=== PATIENT | female | born 1990 | race Two or more races ===

== ENCOUNTER 2021-03-08 17:14 | Emergency (ER) | payer SELFPAY ==
[~2021-03-08] VITALS: Ht 165.1 cm; Wt 60.9 kg
[2021-03-08 17:46] VITALS: BP 136/99
--- NOTE | 2021-03-08 18:56 | PHYS DOC ---
Past History Past Surgical History: No Surgical History General Adult EDM: Chief Complaint: ABDOMINAL PAIN HPI: HPI: Patient is a 31-year-old female who presents to the ER today for epigastric pain for 3 days. She describes the pain as constant and burning, she rates it 8 out of 10, no treatment prior to arrival. She is also reporting nausea and vomiting. She denies diarrhea, dysuria, urinary frequency/urgency, fevers. She was sent here from urgent care for rule out cholecystitis. Review of Systems: Review of Systems: 14 body systems of the review of systems have been reviewed. See HPI for pertinent positive and negative responses, otherwise all other systems are negative, nonpertinent or noncontributory Allergies: Allergies: Allergies Coded Allergies Type Severity Reaction Last Updated Verified No Known Drug Allergies 03/08/21 No Physical Exam: PE: Constitutional: Well developed, well nourished, no acute distress, non-toxic appearance. [] HENT: Normocephalic, atraumatic Eyes: PERRL, conjunctiva normal, no discharge. [] Neck: Normal range of motion, no tenderness, supple, no stridor. [] Cardiovascular:Heart rate regular rhythm, no murmur [] Lungs & Thorax: Bilateral breath sounds clear to auscultation [] Abdomen: Bowel sounds normal, soft, no masses, no pulsatile masses, positive Tam sign tenderness with palpation to right upper quadrant and epigastric region of abdomen Skin: Warm, dry, no erythema, no rash. [] Back: No tenderness, no CVA tenderness. [] Extremities: No tenderness, no cyanosis, no clubbing, ROM intact, no edema. [] Neurologic: Alert and oriented X 3, normal motor function, normal sensory function, no focal deficits noted. [] Psychologic: Affect normal, judgement normal, mood normal. [] Current Patient Data: Labs: Laboratory Tests Test 03/08/21 18:42 POC Urine HCG, Qualitative hcg negative (Negative) Vital Signs: Vital Signs Date Time Temp Pulse Resp B/P (MAP) Pulse Ox O2 Delivery O2 Flow Rate FiO2 03/08/21 17:46 99.2 101 20 136/99 99 Room Air EKG: EKG: [] Radiology/Procedures: Radiology/Procedures: PROCEDURE: CT ABD PELV W/ IV CONTRST ONLY Exam: CT of abdomen and pelvis with contrast INDICATION: Right upper quadrant pain TECHNIQUE: Sequential axial images through the abdomen and pelvis obtained following the administration of 75 mL of Isovue-370 IV contrast. Sagittal and coronal reformatted images were reconstructed from the axial data and reviewed. Exposure: One or more of the following in the visualized dose reduction techniques were utilized for this examination: 1. Automated exposure control 2. Adjustment of the MA and/or KV according to patient size 3. Use of iterative of reconstructive technique Comparisons: None FINDINGS: Heart size is normal. No pericardial effusion. Visualized lung bases. No pleural effusion. Liver, spleen, pancreas, gallbladder and adrenals are unremarkable. No perinephric inflammation or hydronephrosis. No renal or ureteral calculi are identified. Bladder is partially distended and not well evaluated. Uterus is nonenlarged. There is a cystic lesion at the left adnexa which measures 4.3 cm in diameter. Large and small bowel are unremarkable. Appendix is normal. No free intra- abdominal air or fluid. No obstruction. Abdominal aorta has a normal course and caliber. Abdominal vasculature is patent. No enlarged intra-abdominal lymph nodes are identified. No suspicious osseous lesions or acute fractures. IMPRESSION: Cystic lesion at the left adnexa measuring 4.3 cm. This is favored represent cyst in the left ovary however incompletely characterized on CT. Electronically signed by: iFliberto Patel MD (03/08/2021 8:24 PM) [facility] DICTATED AND SIGNED BY: FILIBERTO PATEL MD DATE: 03/08/212014 CC: DAMARIS MATHIAS APRN; PCP,NO ~MTH0 0 Heart Score: C/O Chest Pain: No Risk Factors: Risk Factors: DM, Current or recent (<one month) smoker, HTN, HLP, family history of CAD, obesity. Risk Scores: Score 0 - 3: 2.5% MACE over next 6 weeks - Discharge Home Score 4 - 6: 20.3% MACE over next 6 weeks - Admit for Clinical Observation Score 7 - 10: 72.7% MACE over next 6 weeks - Early Invasive Strategies Course & Med Decision Making: Course & Med Decision Making Pertinent Labs and Imaging studies reviewed. (See chart for details) Patient is a 25-year-old female being seen for right upper quadrant and epigastric pain. Work-up included blood work, UA, CT scan of abdomen. Patient was treated in the ER with nausea medication, fluids, pain medication. Patient's potassium was 3.4 and was treated in the ER. Her blood work was mostly unremarkable. CT scan of abdomen showed a ovarian cyst. Patient notified of this and told to follow-up with [facility]. Patient was also treated with a GI cocktail. It is likely that patient is experiencing GERD or gastritis. I discussed with patient all findings and diagnostic testing as well as the need to follow-up with PCP for further evaluation and treatment or return to the ER if any new or worsening symptoms. Strict return precautions were also discussed at length. Patient voiced understanding and agreement with the plan. Patient is hemodynamically stable at the time of disposition. Dragon Disclaimer: [employer] Disclaimer: This electronic medical record was generated, in whole or in part, using a voice recognition dictation system. Departure Departure: Impression: Primary Impression: GERD (gastroesophageal reflux disease) Qualified Codes: K21.9 - Gastro-esophageal reflux disease without esophagit is Disposition: HOME / SELF CARE / HOMELESS Condition: GOOD Referrals: PCP,NO (PCP) Patient Instructions: Diet for Gastroesophageal Reflux Disease, Adult, Gastroesophageal Reflux Disease, Adult Additional Instructions: You were seen in the ER today for upper abdominal pain. You had blood work performed which was unremarkable other than a low potassium level which was treated in the ER. Your CT scan of your abdomen just showed a cyst on your left ovary. You should follow-up with your SCIENTIFIC LINGUIST regarding this. If you develop severe vaginal bleeding or severe pelvic pain this is concerning and you should return to the ER. As a stated previously your potassium level is low please make sure that you are eating potassium rich foods like green leafy vegetables. It is likely that your symptoms are caused by GERD. Please see the handout about foods that you can eat to help prevent GERD. You can take Pepcid OTC for acid reflux at home as directed. If you continue to be constipated you can take MiraLAX [id number] as directed. Please follow-up with your primary care provider tomorrow regarding your ER visit. If you develop worsening of your henry n, uncontrollable nausea or vomiting, fevers, blood in your stools or in your vomit, chest pain, shortness of breath please return to the ER immediately. EMERGENCY DEPARTMENT GENERAL DISCHARGE INSTRUCTIONS Thank you for coming to [facility] (ED) today and trusting us with you care. We trust that you had a positivie experience in our Emergency Department. If you wish to speak to the department management, you may call the director at [phone]. YOUR FOLLOW UP INSTRUCTIONS ARE FOLLOWS: 1. Do you have a private Doctor? If you do not have a private doctor, please ask for a resource list of physicians or clinics that may be able to assist you with follow up care. 2. The Emergency Physician has interpreted your x-rays. The X-Ray specialist will also review them. If there is a change in the findings, you will be notified in 48 hours when at all possible. 3. A lab test or culture has been done, your results will be reviewed and you will be notified if you need a change in treatment. ADDITIONAL INSTRUCTIONS AND INFORMATION: 1. Your care today has been supervised by a physician who is specially trained in emergency care. Many problems require more than one evaluation for a complete diagnosis and treatment. We recommend that you schedule your follow up appointment as recommended to ensure complete treatment of you illness or injury. If you are unable to obtain follow up care and continue to have a problem, or if your condition worsens, we recommend that you return to the ED. 2. We are not able to safely determine your condition over the phone nor are we able to give sound medical advice over the phone. For these safety reasons, if you call for medical advice we will ask you to come to the ED for further evaluation. 3. If you have any questions regarding these discharge instructions please call the ED at [phone]. SAFETY INFORMATION: In the interest of safety, wellness, and injury prevention; we encourage you to wear your sealbelt, if you smoke; quite smoking, and we encourage family to use a protective helmet for bicycling and other sporting events that present an increased risk for head injury. IF YOUR SYMPTOMS WORSEN OR NEW SYMPTOMS DEVELOP, OR YOU HAVE CONCERNS ABOUT YOUR CONDITION; OR IF YOUR CONDITION WORSENS WHILE YOU ARE WAITING FOR YOUR FOLLOW UP APPOINTMENT; EITHER CONTACT YOUR PRIMARY CARE DOCTOR, THE PHYSICIAN WHOSE NAME AND NUMBER YOU WERE GIVEN, OR RETURN TO THE ED IMMEDIATELY. DAMARIS MATHIAS APRN Mar 08, 2021 18:56
[2021-03-08] MEDS ORDERED: ONDANSETRON PF 4 MG/2 ML VIAL. IVP ONE (19:00)
[2021-03-08] MEDS ORDERED: IOHEXOL 300 MG/ML 75 ML VIAL. IV ONE (19:00)
[2021-03-08] MEDS ORDERED: IV NORMAL SALINE 1,000ML 1,000 ML IV ONE (19:00)
[2021-03-08 19:16] LABS: BILIRUBIN,URINE NEG (NEG); CLARITY,URINE CLEAR; COLOR,URINE STRAW; GLUCOSE,URINE NEG (NEG)
[2021-03-08 19:17] LABS: BACTERIA,URINE 0 /HPF (0-FEW); NITRITE,URINE NEG (NEG); RBC,URINE RARE /HPF (0-2); SQUAMOUS EPITHELIAL CELL,UR OCC /LPF; UROBILINOGEN,URINE 0.2 mg/dL (0.2 mg/dL); WBC,URINE RARE /HPF (0-4)
[2021-03-08 19:22] LABS: BASO # 0.1 x10^3/uL (0.0-0.2); BASO % 1 % (0-3); EOS # 0.8 x10^3/uL (0.0-0.7); EOS % 8 % (0-3); HEMOGLOBIN 14.1 g/dL (12.0-15.5); LYMPH # 3.4 x10^3/uL (1.0-4.8); LYMPH % 30 % (24-48); MEAN CORPUSCULAR HEMOGLOBIN 31 pg (25-35); MEAN CORPUSCULAR HGB CONC 34 g/dL (31-37); MEAN CORPUSCULAR VOLUME 91 fL (79-100); MONO # 0.7 x10^3/uL (0.0-1.1); MONO % 7 % (0-9); NEUT # 6.2 x10^3uL (1.8-7.7); NEUT % 55 % (31-73); PLATELET COUNT 362 x10^3/uL (140-400); RED BLOOD COUNT 4.49 x10^6/uL (3.50-5.40); WHITE BLOOD COUNT 11.2 x10^3/uL (4.0-11.0)
[2021-03-08 19:35] LABS: CALCIUM 8.5 mg/dL (8.5-10.1); CREATININE 0.7 mg/dL (0.6-1.0); GFR 98.9; POTASSIUM 3.4 mmol/L (3.5-5.1)
[2021-03-08 19:36] LABS: ALBUMIN/GLOBULIN RATIO 1.2 (1.0-1.7); TOTAL BILIRUBIN 0.4 mg/dL (0.2-1.0); TOTAL PROTEIN 7.4 g/dL (6.4-8.2)
--- NOTE | 2021-03-08 20:27 | RAD ---
Exam: CT of abdomen and pelvis with contrast INDICATION: Right upper quadrant pain TECHNIQUE: Sequential axial images through the abdomen and pelvis obtained following the administrati on of 75 mL of Isovue-370 IV contrast. Sagittal and coronal reformatted images were reconstructed fro m the axial data and reviewed. Exposure: One or more of the following in the visualized dose reduction techniques were utilized for this examination: 1. Automated exposure control 2. Adjustment of the MA and/or KV according to patient size 3. Use of iterative of reconstructive technique Comparisons: None FINDINGS: Heart size is normal. No pericardial effusion. Visualized lung bases. No pleural effusion. Liver, spleen, pancreas, gallbladder and adrenals are unremarkable. No perinephric inflammation or hydronephrosis. No renal or ureteral calculi are identified. Bladder is partially distended and not well evaluated. Uterus is nonenlarged. There is a cystic lesio n at the left adnexa which measures 4.3 cm in diameter. Large and small bowel are unremarkable. Appendix is normal. No free intra-abdominal air or fluid. No obstruction. Abdominal aorta has a normal course and caliber. Abdominal vasculature is patent. No enlarged intra-abdominal lymph nodes are identified. No suspicious osseous lesions or acute fractures. IMPRESSION: Cystic lesion at the left adnexa measuring 4.3 cm. This is favored represent cyst in the left ovary h owever incompletely characterized on CT. Electronically signed by: Soy Maynard MD (03/08/2021 8:24 PM) [facility]
[2021-03-08] MEDS ORDERED: POTASSIUM CHLORIDE 20 MEQ TABLET.ER. PO ONE (20:45)
[2021-03-08] MEDS ORDERED: LIDO:MAALOX 1:1 20 ML SINGLE DOSE. PO ONE (20:45)
== END 2021-03-08 20:52 | disposition home or self-care (01) ==
LOC: ER 17:14
DX: K21.9 Gastro-esophageal reflux disease without esophagitis (principal)
CPT/HCPCS: 36415; 74177; 80053; 81001; 81025; 83690; 85025; 96361; 96374; 96375; 99285; J2405; J3010; J7030